=== PATIENT | female | born 1965 | race Caucasian/White ===

== ENCOUNTER 2016-05-31 04:40 | Emergency (ER) | payer BC ==
[~2016-05-31] VITALS: Ht 172.7 cm; Wt 81.3 kg
[2016-05-31 04:48] VITALS: BP 123/77; PULSE 85; RESP 18; TEMP 97.9; O2SAT 100
[2016-05-31 04:51] VITALS: BP 123/77; PULSE 85; RESP 18; TEMP 97.9; O2SAT 100
[2016-05-31] MEDS ORDERED: predniSONE 20 MG TAB PO ONE (05:00)
[2016-05-31] MEDS ORDERED: CYCLOBENZAPRINE HCL 10 MG TAB PO ONE (05:00)
[2016-05-31] MEDS ORDERED: LEVO137T2 PO (05:01)
--- NOTE | 2016-05-31 05:06 | PD ---
HPI . Left shoulder pain Chief Complaint: Pain: Acute or Chronic Time Seen by Provider: 04:57 Travel History International Travel<30 days: No Contact w/Intl Traveler<30days: No Traveled to known affect area: No History of Present Illness HPI Patient presents with the acute onset of left shoulder pain. She states that her shoulder was just a little bit sore couple days ago. It became acutely worse last night. It is now to the point where she can't move her shoulder. She states that her left thumb feels numb this morning. She thinks that that is probably from the way she was sleeping. She states she has had difficulty positioning herself to sleep. She has taken ibuprofen with minimal relief of her symptoms. She denies any known injury. [facility] Past Medical History Diminished Hearing: No Immunizations Current: Yes Thyroid Disease: Yes Tetanus Vaccination: < 5 Years Influenza Vaccination: Yes ?: Not LMP: 2 WEEKS AGO Social History Alcohol Use: No Tobacco Use: No Substance Use: No Allergies-Medications (Allergen,Severity, Reaction): Coded Allergies: No Known Allergies (Unverified , 05/31/16) Reported Meds & Prescriptions Reported Meds & Active Scripts Active Reported Levothyroxine (Levothyroxine Sodium) 137 Mcg Tab 137 Mcg PO DAILY Review of Systems Musculoskeletal: Positive: Arthralgias, Limited ROM, No: Weakness, Edema Skin: No Change in Pigmentation Neurologic: Positive: Paresthesia (left thumb) Physical Exam Narrative GENERAL: Awake and alert and in no acute distress. SKIN: Warm and dry. MUSCULOSKELETAL: No obvious deformities. No edema. She is tender at the posterior joint line of the left shoulder. She is not tender at the biceps tendon. She is not tender and over the deltoid. There is no tenderness at the AC joint. She has pretty markedly limited range of motion especially lifting the elbow or putting her hand behind her back. NEUROLOGICAL: Awake and alert. No obvious cranial nerve deficits. Motor grossly within normal limits. Normal speech. PSYCHIATRIC: Appropriate mood and affect; insight and judgment normal. Data Data Last Documented VS Vital Signs Date Time Temp Pulse Resp B/P Pulse Ox O2 Delivery O2 Flow Rate FiO2 05/31/16 04:57 85 18 05/31/16 04:51 97.9 123/77 100 Orders Prednisone (Deltasone) (05/31/16 05:00) Cyclobenzaprine (Flexeril) (05/31/16 05:00) Shoulder, Complete (>2vws) (05/31/16 04:59) MDM Medical Decision Making Medical Screen Exam Complete: Yes Emergency Medical Condition: Yes Differential Diagnosis Differential diagnosis of joint pain includes but is not limited to arthritis, gout, sprain/strain, fracture, dislocation, rotator cuff injury Narrative Course Patient presents for treatment of left shoulder pain with decreased range of motion. X-ray shows calcific tendinitis of the rotator cuff. The x-ray has been independently viewed by me. Diagnosis Primary Impression: Left shoulder pain Qualified Code: M25.512 - Acute pain of left shoulder Additional Impression: Calcific tendinitis of left shoulder Referrals: Werner Zimmerman MD 3 days Patient Instructions: General Instructions, Rotator Cuff Tendinitis (DC) Med/Other Pt SpecificInfo: Prescription(s) given Scripts Prednisone 20 Mg Tab60 Mg PO DAILY 5 Days Ref 0 Prov:Danielle Ferrera MD 05/31/16 Cyclobenzaprine (Flexeril)10 Mg Tab10 Mg PO TID #30 TAB Ref 0 Prov:Danielle Ferrera MD 05/31/16 Tramadol (Ultram)50 Mg Tab50 Mg PO Q4H PRN (PAIN) #12 TAB Ref 0 Prov:Danielle Ferrera MD 05/31/16 Disposition: 01 DISCHARGE HOME Condition: Stable Danielle Ferrera MD May 31, 2016 05:06
--- NOTE | 2016-05-31 05:33 | RADHPO ---
EXAM DATE/TIME: 05/31/2016 05:13 [place] COMPARISON: No previous studies available for comparison. INDICATIONS : Left shoulder pain from unknown injury. MEDICAL HISTORY : None. SURGICAL HISTORY : None. ENCOUNTER: Initial ACUITY: 2 days PAIN SCORE: 7/10 LOCATION: Left shoulder FINDINGS: 5 views of the left shoulder. 2 cm amorphus calcific density in the region of the distal rotator cuff tendon indicating calcific tendinosis. Glenohumeral joint within normal limits. Acromioclavicular chetan int within normal limits. Bone alignment within normal limits. No evidence of fracture. CONCLUSION: Calcific tendinosis of the rotator cuff. Ponce Bhagat MD on May 31, 2016 at 5:29 Board Certified Radiologist. This report was verified electronically.
[2016-05-31] MEDS ORDERED: ULTR50TA5 PO (05:44)
[2016-05-31] MEDS ORDERED: PRED20 PO (05:44)
[2016-05-31] MEDS ORDERED: CYCL1TAB29 PO (05:44)
[2016-05-31 05:55] VITALS: BP 119/76
== END 2016-05-31 05:56 | disposition home or self-care (01) ==
LOC: PHED 04:40
DX: M25.512 Pain in left shoulder (principal); M75.32 Calcific tendinitis of left shoulder; R20.0 Anesthesia of skin
CPT/HCPCS: 29240; 73030; 99283; J7512